=== PATIENT | male | born 1970 | race Caucasian/White ===

== ENCOUNTER 2016-05-02 07:17 | Emergency (ER) | payer MEDICARE, MEDICAID | END 2016-05-02 09:15 | disposition home or self-care (01) | LOC: D.ER 07:17 | DX: R07.89 Other chest pain (principal); F17.200 Nicotine dependence, unspecified, uncomplicated ==

== ENCOUNTER 2016-05-23 14:35 | Emergency (ER) | payer MEDICARE, MEDICAID | END 2016-05-23 15:47 | disposition home or self-care (01) | LOC: D.ER 14:35 | DX: M54.5 Low back pain (principal); G89.29 Other chronic pain; M54.16 Radiculopathy, lumbar region ==

== ENCOUNTER 2016-06-09 12:24 | Emergency (ER) | payer MEDICARE | END 2016-06-09 14:30 | disposition left against medical advice (07) | LOC: D.ER 12:24 | DX: M54.2 Cervicalgia (principal) ==

== ENCOUNTER 2016-11-14 03:30 | Emergency (ER) | payer MEDICARE | END 2016-11-14 04:00 | disposition home or self-care (01) | LOC: D.ER 03:30 | DX: M54.5 Low back pain (principal) ==

== ENCOUNTER 2016-11-30 17:58 | Emergency (ER) | payer MEDICARE | END 2016-11-30 19:55 | disposition home or self-care (01) | LOC: D.ER 17:58 | DX: S40.011A Contusion of right shoulder, initial encounter (principal); W19.XXXA Unspecified fall, initial encounter; Y93.89 Activity, other specified; Y92.89 Other specified places as the place of occurrence of the external cause; S16.1XXA Strain of muscle, fascia and tendon at neck level, initial encounter; F17.200 Nicotine dependence, unspecified, uncomplicated ==

== ENCOUNTER 2018-01-07 14:16 | Emergency (ER) | payer MEDICARE ==
[~2018-01-07] VITALS: Ht 180.3 cm; Wt 80.9 kg
[2018-01-07 14:19] VITALS: BP 162/103; Ht 180.3 cm; Wt 80.9 kg
[2018-01-07] MEDS ORDERED: PRINIVIL20 MG PO (14:21)
[2018-01-07] MEDS ORDERED: HYDROCHLOROTHIA25 MG PO (14:21)
[2018-01-07] MEDS ORDERED: TORADOL10 MG PO (15:13)
== END 2018-01-07 16:14 | disposition home or self-care (01) ==
LOC: D.ER 14:16
DX: M25.562 Pain in left knee (principal); Z98.890 Other specified postprocedural states; I10 Essential (primary) hypertension; F17.200 Nicotine dependence, unspecified, uncomplicated

== ENCOUNTER 2019-09-17 18:27 | Emergency (ER) | payer MEDICARE ==
[~2019-09-17] VITALS: Ht 180.3 cm; Wt 63.6 kg
[~2019-09-17 18:27] MED LIST: HYDROCHLOROTHIA25 MG PO; PRINIVIL20 MG PO; TORADOL10 MG PO
[2019-09-17 18:28] VITALS: Ht 180.3 cm; Wt 63.6 kg
[2019-09-17 19:08] LABS: HEMATOCRIT 39.8 % (42.0-54.0); HEMOGLOBIN 13.7 g/dL (13.5-17.5); LYMPHOCYTES 22.9 % (15-50); MCH 30.4 pg (26.0-34.0); MCHC 34.4 g/dL (31.0-37.0); MCV 88.2 fL (80.0-100.0); MEAN PLATELET VOLUME 9.8 fL (7.4-10.4); NEUTROPHILS 69.3 % (40-80); PLATELET COUNT 286 10x3/uL (130-400); RBC 4.51 10x6/uL (4.20-6.10); RDW 13.1 % (11.5-14.5); WBC 9.7 10x3/uL (4.8-10.8)
[2019-09-17 19:24] LABS: ALBUMIN 3.2 g/dL (3.4-5.0); ALKALINE PHOSPHATASE 82 U/L (30-120); ALT (SGPT) 25 U/L (10-68); BILIRUBIN - TOTAL 0.64 mg/dL (0.2-1.3); CALC OSMOLALITY 271 mosm/kg (275-300); CARBON DIOXIDE 26.6 mmol/L (21.0-32.0); CHLORIDE - SERUM 101 mmol/L (98-107); CREATININE - SERUM 0.8 mg/dL (0.6-1.3); GLUCOSE 115 mg/dL (74-106); PROTEIN - SERUM 6.1 g/dL (6.4-8.2); SODIUM 136 mmol/L (136-145); UREA NITROGEN 11 mg/dL (7-18); eGFR NON AFRICAN AMERICAN > 90 mL/min (90-120)
[2019-09-17 19:25] LABS: POTASSIUM - SERUM 2.8 mmol/L (3.5-5.1)
[2019-09-17 20:41] LABS: BILIRUBIN NEGATIVE (NEGATIVE); GLUCOSE NEGATIVE (NEGATIVE); KETONE NEGATIVE (NEGATIVE); NITRITE NEGATIVE (NEGATIVE); UROBILINOGEN NORMAL (NORMAL)
[2019-09-17 20:44] LABS: UDS - AMPHET POSITIVE QUAL (NEGATIVE); UDS - BARB NEGATIVE QUAL (NEGATIVE); UDS - BENZO POSITIVE QUAL (NEGATIVE); UDS - COCAINE NEGATIVE QUAL (NEGATIVE); UDS - OPIATE POSITIVE QUAL (NEGATIVE); UDS - PCP NEGATIVE QUAL (NEGATIVE); UDS - THC NEGATIVE QUAL (NEGATIVE)
[2019-09-17 22:54] VITALS: BP 117/63
== END 2019-09-17 23:07 | disposition home or self-care (01) ==
LOC: D.ER 18:27
PROVIDERS: Emergency Medicine
DX: S02.2XXA Fracture of nasal bones, initial encounter for closed fracture (principal); S02.412A LeFort II fracture, initial encounter for closed fracture; S02.85XA Fracture of orbit, unspecified, initial encounter for closed fracture; I10 Essential (primary) hypertension; Z72.0 Tobacco use; V19.9XXA Pedal cyclist (driver) (passenger) injured in unspecified traffic accident, initial encounter; Y93.9 Activity, unspecified; Y92.9 Unspecified place or not applicable